=== PATIENT | male | born 1940 | race Caucasian/White ===

== ENCOUNTER → 2018-10-13 10:59 | Outpatient (CLI) | payer OTHER, SELFPAY ==
--- NOTE | 2018-10-13 | DI.US.S_ITS ---
PROCEDURE: US ABD AORTA ANEURYSM SCREEN INDICATIONS: SCREENING FOR CARDIOVASCULAR DISORDER TECHNIQUE: Real time scanning was performed of the aorta and iliac arteries, with image documentation. COMPARISON: None. FINDINGS: Aorta: Proximal aortic diameter measures 2.4 cm. Mid-aorta measures 2.0 cm. Distal aortic diameter is 1.9 cm. Iliac arteries: Right common iliac artery measures 1.1 cm. Left common iliac artery measures 1.1 cm. IMPRESSION: No ectasia or aneurysm of the abdominal aorta or iliac arteries. Dictated by: Alana June M.D. on 10/13/2018 at 12:57 Approved by: Alana June M.D. on 10/13/2018 at 12:59
== END ==
PROVIDERS: PCP Family Medicine; Visit Provider Family Medicine
DX: Z13.6 Encounter for screening for cardiovascular disorders (principal)
CPT/HCPCS: 76706

== ENCOUNTER 2019-01-12 12:35 | Emergency (ER) | payer OTHER, SELFPAY ==
[2019-01-12 12:57] VITALS: BP 145/79; PULSE 84; RESP 18; TEMP 36.6; O2SAT 99
== END 2019-01-12 14:06 | disposition left against medical advice (07) ==
PROVIDERS: Emergency Provider Emergency Medicine; PCP Family Medicine
DX: S61.011A Laceration without foreign body of right thumb without damage to nail, initial encounter (principal)
CPT/HCPCS: 99283

== ENCOUNTER → 2019-05-25 12:03 | Outpatient (CLI) | payer MEDICARE, OTHER, SELFPAY ==
--- NOTE | 2019-05-25 | DI.MRI.S_ITS ---
PROCEDURE: MR PELIS WO/W CON INDICATIONS: Malignant neoplasm of prostate TECHNIQUE: Coronal HASTE, axial T1 FSE with fat saturation, 3-plane nonbreath-hold T2 FSE. After the administration of contrast, dynamic axial, delayed axial and coronal VIBE or 2-D FLASH with fat saturation through the pelvis. Optional diffusion weighted imaging and ADC may be performed. COMPARISON: None. FINDINGS: Image quality: There is mild motion artifact. Prostate: Gland size is 6.2 x 5.1 x 5.9 cm; ellipsoid gland volume is 97 mL. There is heterogeneous enlargement of the transition zone compatible with BPH. There are confluent areas of intrinsic T1 hyperintensity within the peripheral zone as well as scattered foci within the transition zone compatible with blood product likely from prior biopsy. Lesion size(s): Lesion 1: 1.0 x 0.9 x 0.8 cm. Lesion 2: 1.7 x 1.6 x 1.7 cm. Lesion location(s) (sector): Lesion 1: Posterior left peripheral zone extending inferolaterally from the apex of the prostate. Lesion 2: Posterior left transition zone in the mid gland. Lesion description: Lesion 1: Oval T2 hyperintense lesion with indistinct margins demonstrating extraprostatic extension inferolaterally. Lesion 2: Oval circumscribed heterogeneously T2 hypointense lesion. T2 weighted imaging (T2WI) morphology score: Lesion 1: 4 Lesion 2: 2 Diffusion weighted imaging (DWI) morphology score: Lesion 1: 4 Lesion 2: 2 Dynamic contrast enhancement (DCE): Lesion 1: Absent. Lesion 2: Present. Lesion PI-RADS score: Lesion 1: PI-RADS 4 Lesion 2: PI-RADS 2 Genitourinary system: Bladder wall thickness is normal. Distal ureters are non distended. Bowel and peritoneum: No pathologic free pelvic fluid. Inferior colon and small bowel loops are normal in caliber. Nodes and vessels: No pelvic or inguinal adenopathy by size criteria. Iliac vessels are normal in caliber. Soft tissues: There are bilateral small fat containing inguinal hernias. Bones: Marrow demonstrates normal overall signal, without suspicious lesions to suggest metastases. IMPRESSION: 1. PI-RADS 4 demonstrated in the left peripheral zone with extraprostatic extension inferolaterally. 2. Heterogeneous enlargement of the prostate compatible with BPH. 3. No evidence of pelvic lymphadenopathy by size criteria. Dictated by: David Sandoval M.D. on 05/25/2019 at 17:24 Approved by: David Sandoval M.D. on 05/25/2019 at 17:34
== END ==
PROVIDERS: PCP Family Medicine; Referring Provider Specialist; Visit Provider Specialist
DX: C61 Malignant neoplasm of prostate (principal)
CPT/HCPCS: 72197; A9579

== ENCOUNTER → 2019-11-04 11:37 | Outpatient (CLI) | payer MEDICARE, OTHER, SELFPAY | PROVIDERS: PCP Family Medicine; Visit Provider Specialist | DX: C61 Malignant neoplasm of prostate (principal); N39.0 Urinary tract infection, site not specified; N48.6 Induration penis plastica; N52.9 Male erectile dysfunction, unspecified; Z79.818 Long term (current) use of other agents affecting estrogen receptors and estrogen levels | CPT/HCPCS: 51798; 81002; 87086; 96372; 96402; 99213; J0897; J9155 ==

== ENCOUNTER → 2019-12-08 15:04 | Outpatient (CLI) | payer MEDICARE, OTHER, SELFPAY | PROVIDERS: PCP Family Medicine; Visit Provider Specialist | DX: C61 Malignant neoplasm of prostate (principal); N39.0 Urinary tract infection, site not specified; N48.6 Induration penis plastica; Z80.42 Family history of malignant neoplasm of prostate | CPT/HCPCS: 51798; 81002; 87086; 96402; 99213; J9217 ==

== ENCOUNTER → 2020-08-29 19:08 | Outpatient (ROUT) | payer MEDICARE, OTHER, SELFPAY | PROVIDERS: PCP Family Medicine; Visit Provider Specialist | DX: R97.20 Elevated prostate specific antigen [PSA] (principal) | CPT/HCPCS: 84153 ==